=== PATIENT | female | born 1995 | race Caucasian/White ===

== ENCOUNTER 2017-01-27 17:46 | Emergency (ER) | payer OTHER ==
[2017-01-27 19:17] VITALS: TEMP 99.9
--- NOTE | 2017-01-27 19:43 | UCPHY ---
H & P Time Seen by Provider: 01/27/17 18:27 Patient Type: New HPI/ROS: This patient became ill yesterday with sore throat, congestion, cough, but no ear pain or abdominal pain. She did vomit once yesterday but has not vomited today. She describes dizziness is a spinning feeling and is associated with nausea. She returns today from a 1 week trip to [place]. Her mother is ill with similar symptoms which began 3 days previously. REVIEW OF SYSTEMS: Constitutional: Fever, malaise, vertigo with nausea and 1 episode of vomiting Eyes: No complaints ENT: Sore throat, nasal congestion no ear pain Respiratory: Cough, questionable shortness of breath Cardiac: No chest pain Gastrointestinal: No diarrhea no abdominal pain, nausea with vertigo. Genitourinary: Not addressed Musculoskeletal: Myalgias Skin: No rash Neurological: Headache Smoking Status: Never smoked Physical Exam: GENERAL: Well-appearing, well-nourished and in no acute distress. HEAD: Atraumatic, normocephalic. EYES: , sclera anicteric, conjunctiva are normal. ENT: TMs normal, nares patent, oropharynx clear without exudates. Moist mucous membranes. NECK: Normal range of motion, supple without lymphadenopathy or JVD. LUNGS: Breath sounds clear to auscultation bilaterally and equal. No wheezes rales or rhonchi. HEART: Regular rate and rhythm ABDOMEN: Soft, nontender, EXTREMITIES: Normal range of motion, NEUROLOGICAL: Cranial nerves II through XII grossly intact. Normal speech, normal gait. PSYCH: Normal mood, normal affect. SKIN: Warm, dry, normal turgor, no visible rashes or lesions. Constitutional: Initial Vital Signs Temperature (C) 37.7 C 01/27/17 18:55 Heart Rate 112 H 01/27/17 18:55 Respiratory Rate 16 01/27/17 18:55 Blood Pressure 103/57 L 01/27/17 18:55 O2 Sat (%) 94 01/27/17 18:55 O2 Delivery Mode Room Air Allergies/Adverse Reactions: acetaminophen [From [place]] Allergy (Verified 01/27/17 19:11) hydrocodone bitartrate [From [place]] Allergy (Verified 01/27/17 19:11) oxycodone Allergy (Verified 01/27/17 19:11) peanut [Peanut] Allergy (Verified 07/25/15 09:17) Home Medications: Medication Instructions Recorded Oseltamivir Phosphate [Tamiflu 75 75 mg PO BID #10 cap 01/27/17 mg (RX)] Medical Decision Making - Data Points Laboratory Results: 01/27/17 18:56 Influenza Typ A,B (DFA) POSITIVE FOR FLU A H (NEGATIVE) Departure - Departure Disposition: Home, Routine, Self-Care Clinical Impression: Influenza A Condition: Good Instructions: Influenza (ED) Additional Instructions: If your symptoms last more than 10 days you should be re-evaluated. Keep yourself well hydrated but do not force yourself self to eat. Limit her activities until your feeling improved in the fever has resolved. Try a nasal decongestant spray such as Afrin. Adult Pain & Fever Control: We recommend Acetaminophen (Tylenol) and Ibuprofen (Motrin, Advil) for pain and fever control. When fever is high or pain severe, both drugs can be used at the same time, but at different intervals. Please note the time differences. Your dose is: Acetaminophen [650]mg every 4 to 6 hours ibuprofen [600]mg every [6] hours with food OR naproxen Sodium (Aleve) [440]mg every 12 hours. Note: do not take Acetaminophen with Hydrocodone (Vicodin, Lortab) or Oxycodone (Percocet). These medications also contain Acetaminophen. No more than 3000 mg of Acetaminophen should be taken in 24 hours (for an adult) . The maximal dose of ibuprofen that it is safe in a 24-hour period is 2400 mg. You may take 400 mg every 4 hours, 600 mg every 6 hours or 800 mg every 8 hours safely. Referrals: NONE *PRIMARY CARE P,. [Primary Care Provider] - As per Instructions Prescriptions: Oseltamivir Phosphate [Tamiflu 75 mg (RX)] 75 mg PO BID #10 cap - PQRS PQRS Measurement: Not applicable
[2017-01-27 20:45] VITALS: BP 104/77; PULSE 98; RESP 18; O2SAT 97
== END 2017-01-27 20:45 | disposition home or self-care (01) ==
LOC: CED 17:46
DX: J10.1 Influenza due to other identified influenza virus with other respiratory manifestations (principal)
CPT/HCPCS: 87400-PO; 99203-PO; G0463-PO

== ENCOUNTER → 2017-06-30 | Outpatient (CLI) | payer OTHER | LOC: BMCIMAGING 14:46 | PROVIDERS: ATTEND Obstetrics & Gynecology | DX: R10.2 Pelvic and perineal pain (principal); Z97.5 Presence of (intrauterine) contraceptive device ==